=== PATIENT | female | born 1970 | race Caucasian/White ===

== ENCOUNTER 2017-04-06 17:07 | Emergency (ER) | payer OTHER ==
[2017-04-06 18:00] LABS: BILIRUBIN,URINE NEGATIVE (NEG); CLARITY,URINE CLEAR; GLUCOSE,URINE NEGATIVE (NEG); NITRITE,URINE NEGATIVE (NEG); PROTEIN,URINE NEGATIVE (NEG-TRACE); UROBILINOGEN,URINE 0.2 mg/dL (0.2 mg/dL)
[2017-04-06 18:05] LABS: COLOR,URINE STRAW
[2017-04-06 18:09] LABS: BACTERIA,URINE FEW /HPF (0-FEW); RBC,URINE RARE /HPF (0-2); SQUAMOUS EPITHELIAL CELL,UR MANY /LPF; WBC,URINE 0 /HPF (0-4)
[2017-04-06 18:28] LABS: ADD MAN DIFF? NO
[2017-04-06 18:30] LABS: BASO # 0.1 x10^3/uL (0.0-0.2); BASO % 1 % (0-3); EOS # 0.2 x10^3/uL (0.0-0.7); EOS % 2 % (0-3); HEMATOCRIT 43.7 % (36.0-47.0); LYMPH # 3.3 x10^3/uL (1.0-4.8); LYMPH % 32 % (24-48); MEAN CORPUSCULAR HEMOGLOBIN 28 pg (25-35); MEAN CORPUSCULAR HGB CONC 34 g/dL (31-37); MEAN CORPUSCULAR VOLUME 82 fL (79-100); MONO # 0.8 x10^3/uL (0.0-1.1); MONO % 8 % (0-9); NEUT % 58 % (31-73); PLATELET COUNT 356 x10^3/uL (140-400); RED BLOOD COUNT 5.34 x10^6/uL (3.50-5.40); RED CELL DISTRIBUTION WIDTH 13.6 % (11.5-14.5); WHITE BLOOD COUNT 10.4 x10^3/uL (4.0-11.0)
[2017-04-06] MEDS: IV NORMAL SALINE 1000ML BAG 1,000 ML IV ×2 (18:35)
[2017-04-06] MEDS: ONDANSETRON PF 4 MG/2 ML VIAL. IV ×2 (18:36)
[2017-04-06] MEDS: KETOROLAC 30 MG/ML INJ. IV ×2 (18:37)
[2017-04-06 18:58] LABS: ANION GAP 7 (6-14); BLOOD UREA NITROGEN 14 mg/dL (7-20); BUN/CREATININE RATIO 16 (6-20); CALCIUM 9.4 mg/dL (8.5-10.1); CARBON DIOXIDE 32 mmol/L (21-32); CHLORIDE 100 mmol/L (98-107); CREATININE 0.9 mg/dL (0.6-1.0); GFR 67.1; GLUCOSE 104 mg/dL (70-99); POTASSIUM 3.2 mmol/L (3.5-5.1); SODIUM 139 mmol/L (136-145)
[2017-04-06 19:04] LABS: ALBUMIN 3.8 g/dL (3.4-5.0); ALBUMIN/GLOBULIN RATIO 0.9 (1.0-1.7); ALK PHOS 66 U/L (46-116); ALT (SGPT) 25 U/L (14-59); AST (SGOT) 14 U/L (15-37); LIPASE 128 U/L (73-393); TOTAL BILIRUBIN 0.4 mg/dL (0.2-1.0)
== END 2017-04-06 19:25 | disposition home or self-care (01) ==
LOC: ER 17:07
DX: R10.31 Right lower quadrant pain (principal); I10 Essential (primary) hypertension; Z90.710 Acquired absence of both cervix and uterus; Z98.51 Tubal ligation status; Z88.2 Allergy status to sulfonamides; Z88.1 Allergy status to other antibiotic agents
CPT/HCPCS: 36415; 74176; 80053; 81001; 83690; 85025; 96361; 96374; 96375; 99285-25; J1885; J2405; J7030